=== PATIENT | male | born 1945 | race Caucasian/White ===

== ENCOUNTER → 2019-10-31 | Emergency (ER) | payer MEDICARE ==
[~2019-10-31] VITALS: Ht 185.4 cm; Wt 113.4 kg
[2019-10-31 19:35] VITALS: BP 148/82
== END | disposition home or self-care (01) ==
LOC: ER 16:50
DX: G51.0 Bell's palsy (principal); I10 Essential (primary) hypertension; E11.9 Type 2 diabetes mellitus without complications; E78.5 Hyperlipidemia, unspecified
CPT/HCPCS: 70450

== ENCOUNTER 2020-09-13 08:03 | Inpatient (IN) | payer MEDICARE ==
[~2020-09-13] VITALS: Ht 193 cm; Wt 114.8 kg
[2020-09-13] MEDS ORDERED: InsuLIN REG 1unit/0.01ml Soln (100units/ml) IV ONE (08:45)
[2020-09-13] MEDS ORDERED: SODIUM CHLORIDE 0.9% 1,000 ML IV ONE ×3 (08:45→17:45)
[2020-09-13] MEDS ORDERED: ONDANSETRON HCL 4 MG/2 ML VIAL IV ONE (08:45)
[2020-09-13] MEDS ORDERED: MORPHINE SULFATE 4 MG/ML SYR/VIAL IV ONE (08:45)
[2020-09-13 08:54] LABS: Basophils # (auto) 0 10 ^3/uL (0-0.2); Basophils % (auto) 0.1 % (0.0-2.0); Eosinophils # (auto) 0 10 ^3/uL (0-0.8); Hemoglobin 17.4 g/dL (13.5-17.5); Lymphocytes # (auto) 0.6 10 ^3/uL (0.4-5.4)
[2020-09-13 08:57] LABS: Lymphocytes % (auto) 6.9 % (10.0-50.0); Monocytes # (auto) 0.3 10 ^3/uL (0-1.3); Monocytes % (auto) 4.1 % (0.0-12.0); Neutrophils # (auto) 7.2 10 ^3/uL (1.6-8.6); Neutrophils % (auto) 88.9 % (37.0-80.0); Platelet Count (auto) 166 10^3/uL (140-450)
[2020-09-13 08:58] LABS: Alanine Aminotransferase 55 U/L (16-61); Albumin 3.8 g/dL (3.4-5.0); Anion Gap 9 (5-15); Aspartate Aminotransferase 23 U/L (15-37); BUN/Creatinine Ratio 18.9; Blood Urea Nitrogen 24 mg/dL (7-18); Calcium 10.5 mg/dL (8.5-10.1); Carbon Dioxide 25 mmol/L (21-32); Chloride 99 mmol/L (98-107); GFR African American 72 mL/min; GFR Non-African American 59 mL/min; Glucose 259 mg/dL (74-106); Lipase 55 U/L (73-393); Potassium 4.5 mmol/L (3.5-5.1); Sodium 133 mmol/L (136-145)
[2020-09-13 09:03] LABS: Alkaline Phosphatase 66 U/L (45-117); Bilirubin, Total 0.9 mg/dL (0.2-1.0); Total Protein 7.5 g/dL (6.4-8.2)
[2020-09-13 09:11] LABS: Hematocrit 49.3 % (41.0-53.0); Red Blood Cells 5.06 10^6/uL (4.5-5.90); White Blood Cell 8.2 10^3/uL (4.4-10.8)
[2020-09-13 09:12] LABS: Mean Corpuscular Hemoglobin 34.4 pg (28.0-32.0); Mean Corpuscular Hgb Conc. 35.3 g/dL (32.0-36.0); Mean Corpuscular Volume 97.5 fL (80.0-100.0); Red Cell Distribution Width 12.9 % (11.8-14.3)
[2020-09-13 09:24] LABS: INR 1.04 (0.9-1.15)
[2020-09-13] MEDS ORDERED: PIPERACILLIN-TAZOB 3.375GM 100 ML IV ONE (11:45)
[2020-09-13] MEDS ORDERED: DEXTROSE (50%) 50ML SYRG IV PRN (13:15)
[2020-09-13] MEDS ORDERED: NITROGLYCERIN 0.4 MG SL TAB SL PRN (13:15)
[2020-09-13] MEDS ORDERED: MORPHINE SULF INJ 2 MG/ML SYRINGE 1ML IV PRN (13:15)
[2020-09-13] MEDS ORDERED: ACETAMINOPHEN 650 MG RECT SUPP PR PRN (13:15)
[2020-09-13 14:33] LABS: Cholesterol 129 mg/dL (< 200)
[2020-09-13 14:36] LABS: HDL Cholesterol 59 mg/dL (40-59); LDL Cholesterol 60 mg/dL (< 100); Triglycerides 98 mg/dL (< 150)
[2020-09-13] MEDS ORDERED: GASTROGRAFIN 120 ML SOL ONE (15:00)
[2020-09-13] MEDS: ONDANSETRON HCL 4 MG/2 ML VIAL IV PRN ×2 (16:17→20:25)
[2020-09-13] MEDS: cefTRIAXone 1GM/50ML D5W 50 ML IV SCH (16:29)
[2020-09-13] MEDS: SODIUM CHLORIDE 0.9% 1,000 ML IV SCH ×2 (16:29→21:15)
[2020-09-13] MEDS: metroNIDAZOLE 500MG/100ML 100 ML IV SCH ×2 (17:06→22:00)
[2020-09-13] MEDS: ACCU-CHEK COMFORT CURVE STRIP VI SCH (18:00)
[2020-09-13] MEDS: InsuLIN REG 1unit/0.01ml Soln (100units/ml) SC SCH (18:00)
[2020-09-13] MEDS ORDERED: LIDOCAINE VISCOUS 2% 15ML UD PO ONE (20:00)
[2020-09-13] MEDS ORDERED: LIDOCAINE VISCOUS 2% 15ML UD ONE (20:07)
[2020-09-13] MEDS: MORPHINE SULF INJ 2 MG/ML SYRINGE 1ML IV PRN (20:10)
[2020-09-13 23:36] VITALS: BP_SYST 120; BP_DIAS 68; BP_DIAS 69
[2020-09-14] MEDS: InsuLIN REG 1unit/0.01ml Soln (100units/ml) SC SCH ×4 (00:18→20:29)
[2020-09-14] MEDS: ACCU-CHEK COMFORT CURVE STRIP VI SCH ×6 (00:28→22:00)
[2020-09-14] MEDS: MORPHINE SULF INJ 2 MG/ML SYRINGE 1ML IV PRN (00:31)
[2020-09-14 04:00] VITALS: BP 145/82
[2020-09-14] MEDS: SODIUM CHLORIDE 0.9% 1,000 ML IV SCH ×2 (05:56→13:15)
[2020-09-14] MEDS: metroNIDAZOLE 500MG/100ML 100 ML IV SCH ×3 (05:56→20:30)
[2020-09-14 07:00] LABS: Basophils # (auto) 0 10 ^3/uL (0-0.2); Eosinophils # (auto) 0 10 ^3/uL (0-0.8); Lymphocytes # (auto) 0.7 10 ^3/uL (0.4-5.4); Neutrophils # (auto) 13.8 10 ^3/uL (1.6-8.6); Red Cell Distribution Width 13.2 % (11.8-14.3)
[2020-09-14 07:03] LABS: Basophils % (auto) 0.2 % (0.0-2.0); Hematocrit 44.8 % (41.0-53.0); Lymphocytes % (auto) 4.9 % (10.0-50.0); Mean Corpuscular Hemoglobin 35.2 pg (28.0-32.0); Mean Corpuscular Hgb Conc. 35.7 g/dL (32.0-36.0); Mean Corpuscular Volume 98.7 fL (80.0-100.0); Monocytes # (auto) 0.4 10 ^3/uL (0-1.3); Monocytes % (auto) 2.8 % (0.0-12.0); Neutrophils % (auto) 92.1 % (37.0-80.0); Platelet Count (auto) 162 10^3/uL (140-450); Red Blood Cells 4.54 10^6/uL (4.5-5.90); White Blood Cell 14.9 10^3/uL (4.4-10.8)
[2020-09-14 07:18] LABS: BUN/Creatinine Ratio 20.8; Magnesium 1.5 mg/dL (1.6-2.6); Potassium 4.8 mmol/L (3.5-5.1)
[2020-09-14 09:00] VITALS: BP 145/68
[2020-09-14] MEDS: cefTRIAXone 1GM/50ML D5W 50 ML IV SCH (09:30)
[2020-09-14] MEDS ORDERED: ESCI20TA PO (10:36)
[2020-09-14] MEDS ORDERED: HYDROmorphone HCL 2 MG/ML VL ONE (12:22)
[2020-09-14] MEDS ORDERED: ROCURONIUM 10MG/ML 10ML VIAL IV ONE (12:22)
[2020-09-14] MEDS ORDERED: PROPOFOL 10 MG/ML 20 ML IV ONE (12:30)
[2020-09-14] MEDS ORDERED: ceFAZolin 1GM/50ML 50 ML IV ONE (13:28)
[2020-09-14] MEDS ORDERED: metroNIDAZOLE 500MG/100ML 100 ML IV ONE (13:28)
[2020-09-14] MEDS ORDERED: BUPIVACAINE 0.25% INJ 50ML VIAL ONE (13:30)
[2020-09-14] MEDS ORDERED: POVIDONE IODINE 10 % TOPICAL OINT 30GM TOP ONE (13:30)
[2020-09-14] MEDS ORDERED: PHENYLEPHRINE HCL 10 MG/ML VL IV ONE (13:40)
[2020-09-14] MEDS ORDERED: ePHEDrine SULFATE 50 MG/ML AMP IV ONE (13:40)
[2020-09-14] MEDS ORDERED: METOCLOPRAMIDE HCL 5MG/ml INJ 2ml VIAL ONE (14:18)
[2020-09-14] MEDS ORDERED: ONDANSETRON HCL 4 MG/2 ML VIAL ONE (14:19)
[2020-09-14] MEDS ORDERED: NEOSTIGMINE 1 MG/ML INJ (10mg/10ML VIAL) ONE (14:42)
[2020-09-14] MEDS ORDERED: GLYCOPYRROLATE 0.2 MG/ML 1ML VIAL ONE (14:42)
[2020-09-14] MEDS ORDERED: ATO40T PO (15:42)
[2020-09-14] MEDS ORDERED: HYDROmorphone HCL 2 MG/ML VL IV PRN (15:45)
[2020-09-14] MEDS ORDERED: hydrALAZINE HCL 20 MG/ML VL IV PRN (15:45)
[2020-09-14] MEDS ORDERED: ONDANSETRON HCL 4 MG/2 ML VIAL IV PRN (15:45)
[2020-09-14] MEDS ORDERED: LABETALOL HCL 5 MG/ML 4ML SYRINGE IV PRN (15:45)
[2020-09-14] MEDS ORDERED: METOPROLOL TARTRATE 1MG/1ML-5ML VIAL IV ONE (16:00)
[2020-09-14] MEDS ORDERED: InsuLIN REG 1unit/0.01ml Soln (100units/ml) SC SCH ×2 (16:00)
[2020-09-14] MEDS ORDERED: ACCU-CHEK COMFORT CURVE STRIP VI SCH ×2 (16:00)
[2020-09-14] MEDS: D5W/SOD CHL 0.45%/KCL 40MEQ 1,000 ML IV SCH (16:57)
[2020-09-14 17:00] VITALS: BP 152/73
[2020-09-14] MEDS: FOLIC ACID INJ SCH (17:55)
[2020-09-14] MEDS: SODIUM CHLORIDE 0.9% INJ SCH (17:55)
[2020-09-14] MEDS: MAGNESIUM SULF INJ SCH (17:55)
[2020-09-15] MEDS: MORPHINE SULF INJ 2 MG/ML SYRINGE 1ML IV PRN (00:12)
[2020-09-15] MEDS: ONDANSETRON HCL 4 MG/2 ML VIAL IV PRN (00:12)
[2020-09-15] MEDS: ACCU-CHEK COMFORT CURVE STRIP VI SCH ×7 (00:14→23:42)
[2020-09-15] MEDS: D5W/SOD CHL 0.45%/KCL 40MEQ 1,000 ML IV SCH ×3 (00:14→16:00)
[2020-09-15] MEDS: InsuLIN REG 1unit/0.01ml Soln (100units/ml) SC SCH ×7 (00:15→23:46)
[2020-09-15 05:00] VITALS: BP 128/83
[2020-09-15] MEDS: metroNIDAZOLE 500MG/100ML 100 ML IV SCH ×3 (05:58→23:23)
[2020-09-15] MEDS: cefTRIAXone 1GM/50ML D5W 50 ML IV SCH (08:29)
[2020-09-15 09:15] VITALS: BP 116/71
[2020-09-15] MEDS ORDERED: DEXTROSE (50%) 50ML SYRG IV PRN (10:00)
[2020-09-15] MEDS: INSULIN LANTUS (GLARGINE) 1 /0.01ml (100units/ml) SC SCH ×2 (10:00→22:12)
[2020-09-15] MEDS: PANTOPRAZOLE 40 MG/10 ML VIAL INJ IV SCH (10:24)
[2020-09-15] MEDS: SODIUM CHLORIDE 0.9% INJ SCH (12:43)
[2020-09-15] MEDS: MAGNESIUM SULF INJ SCH (12:43)
[2020-09-15] MEDS: FOLIC ACID INJ SCH (12:43)
[2020-09-15 13:00] VITALS: BP 108/76
[2020-09-15 16:35] VITALS: BP 136/77
[2020-09-15 20:00] VITALS: BP 139/85
[2020-09-15 22:00] VITALS: BP 139/85
[2020-09-16] MEDS: D5W/SOD CHL 0.45%/KCL 40MEQ 1,000 ML IV SCH ×3 (02:04→17:41)
[2020-09-16] MEDS: ACCU-CHEK COMFORT CURVE STRIP VI SCH ×5 (04:03→20:17)
[2020-09-16] MEDS: InsuLIN REG 1unit/0.01ml Soln (100units/ml) SC SCH ×5 (04:05→20:19)
[2020-09-16 05:25] VITALS: BP 144/83
[2020-09-16] MEDS: metroNIDAZOLE 500MG/100ML 100 ML IV SCH ×3 (05:49→22:35)
[2020-09-16 09:00] VITALS: BP 118/76
[2020-09-16] MEDS: PANTOPRAZOLE 40 MG/10 ML VIAL INJ IV SCH (10:31)
[2020-09-16] MEDS: cefTRIAXone 1GM/50ML D5W 50 ML IV SCH (10:31)
[2020-09-16] MEDS: INSULIN LANTUS (GLARGINE) 1 /0.01ml (100units/ml) SC SCH ×2 (10:55→21:51)
[2020-09-16 12:00] VITALS: BP 125/79
[2020-09-16] MEDS: MAGNESIUM SULF INJ SCH (13:39)
[2020-09-16] MEDS: SODIUM CHLORIDE 0.9% INJ SCH (13:39)
[2020-09-16] MEDS: FOLIC ACID INJ SCH (13:39)
[2020-09-16 16:00] VITALS: BP 127/59
[2020-09-16] MEDS ORDERED: BENZOCAINE (DENTAL) 20 % SPRAY 60ML MT ONE ×2 (17:30)
[2020-09-16] MEDS: MORPHINE SULF INJ 2 MG/ML SYRINGE 1ML IV PRN (17:41)
[2020-09-16 22:00] VITALS: BP 139/89
[2020-09-17] MEDS: ACCU-CHEK COMFORT CURVE STRIP VI SCH ×6 (00:02→20:17)
[2020-09-17] MEDS: InsuLIN REG 1unit/0.01ml Soln (100units/ml) SC SCH ×6 (00:04→20:21)
[2020-09-17] MEDS: D5W/SOD CHL 0.45%/KCL 40MEQ 1,000 ML IV SCH ×3 (04:02→18:37)
[2020-09-17 05:00] VITALS: BP 142/89
[2020-09-17] MEDS: metroNIDAZOLE 500MG/100ML 100 ML IV SCH ×3 (06:34→22:33)
[2020-09-17 08:49] VITALS: BP 148/82
[2020-09-17] MEDS: cefTRIAXone 1GM/50ML D5W 50 ML IV SCH (09:09)
[2020-09-17] MEDS: INSULIN LANTUS (GLARGINE) 1 /0.01ml (100units/ml) SC SCH ×2 (09:10→22:34)
[2020-09-17] MEDS: PANTOPRAZOLE 40 MG/10 ML VIAL INJ IV SCH (09:10)
[2020-09-17 10:41] LABS: Basophils # (auto) 0 10 ^3/uL (0-0.2); Eosinophils # (auto) 0.1 10 ^3/uL (0-0.8); Hematocrit 42.1 % (41.0-53.0); Lymphocytes % (auto) 8.8 % (10.0-50.0)
[2020-09-17 10:43] LABS: Basophils % (auto) 0.2 % (0.0-2.0); Eosinophils % (auto) 0.8 % (0.0-7.0); Lymphocytes # (auto) 0.8 10 ^3/uL (0.4-5.4); Mean Corpuscular Hemoglobin 34.3 pg (28.0-32.0); Mean Corpuscular Hgb Conc. 33.3 g/dL (32.0-36.0); Mean Corpuscular Volume 102.9 fL (80.0-100.0); Monocytes # (auto) 0.6 10 ^3/uL (0-1.3); Monocytes % (auto) 7.1 % (0.0-12.0); Neutrophils # (auto) 7.4 10 ^3/uL (1.6-8.6); Neutrophils % (auto) 83.1 % (37.0-80.0); Nucleated Red Blood Cells % 0.1 %; Platelet Count (auto) 160 10^3/uL (140-450); Red Blood Cells 4.09 10^6/uL (4.5-5.90); Red Cell Distribution Width 13.3 % (11.8-14.3); White Blood Cell 8.9 10^3/uL (4.4-10.8)
[2020-09-17 11:11] LABS: Potassium 4.2 mmol/L (3.5-5.1)
[2020-09-17 11:16] LABS: BUN/Creatinine Ratio 30.4; Calcium 9.7 mg/dL (8.5-10.1)
[2020-09-17 17:00] VITALS: BP 128/73
[2020-09-17] MEDS: FOLIC ACID INJ SCH (18:34)
[2020-09-17] MEDS: MAGNESIUM SULF INJ SCH (18:34)
[2020-09-17] MEDS: SODIUM CHLORIDE 0.9% INJ SCH (18:34)
[2020-09-17 22:00] VITALS: BP 133/80
[2020-09-18] MEDS: ACCU-CHEK COMFORT CURVE STRIP VI SCH ×6 (00:21→20:00)
[2020-09-18] MEDS: InsuLIN REG 1unit/0.01ml Soln (100units/ml) SC SCH ×6 (00:26→20:00)
[2020-09-18] MEDS: D5W/SOD CHL 0.45%/KCL 40MEQ 1,000 ML IV SCH (02:42)
[2020-09-18 05:00] VITALS: BP 148/94
[2020-09-18 06:01] LABS: Basophils # (auto) 0 10 ^3/uL (0-0.2); Basophils % (auto) 0.1 % (0.0-2.0); Eosinophils # (auto) 0.2 10 ^3/uL (0-0.8); Eosinophils % (auto) 1.8 % (0.0-7.0); Hematocrit 44.1 % (41.0-53.0); Hemoglobin 15.2 g/dL (13.5-17.5); Lymphocytes # (auto) 1.2 10 ^3/uL (0.4-5.4); Lymphocytes % (auto) 13.6 % (10.0-50.0); Mean Corpuscular Hemoglobin 34.8 pg (28.0-32.0); Mean Corpuscular Hgb Conc. 34.5 g/dL (32.0-36.0); Mean Corpuscular Volume 100.7 fL (80.0-100.0); Monocytes # (auto) 0.7 10 ^3/uL (0-1.3); Neutrophils # (auto) 6.7 10 ^3/uL (1.6-8.6); Neutrophils % (auto) 76.5 % (37.0-80.0); Platelet Count (auto) 171 10^3/uL (140-450); Red Blood Cells 4.38 10^6/uL (4.5-5.90); White Blood Cell 8.8 10^3/uL (4.4-10.8)
[2020-09-18] MEDS: metroNIDAZOLE 500MG/100ML 100 ML IV SCH ×3 (06:15→21:27)
[2020-09-18 06:20] LABS: Albumin 2.7 g/dL (3.4-5.0); Calcium 9.9 mg/dL (8.5-10.1); Potassium 3.8 mmol/L (3.5-5.1)
[2020-09-18 06:24] LABS: BUN/Creatinine Ratio 32.6; Bilirubin, Total 0.6 mg/dL (0.2-1.0)
[2020-09-18 09:00] VITALS: BP 140/56
[2020-09-18] MEDS: PANTOPRAZOLE 40 MG/10 ML VIAL INJ IV SCH (09:42)
[2020-09-18] MEDS: cefTRIAXone 1GM/50ML D5W 50 ML IV SCH (09:42)
[2020-09-18] MEDS: INSULIN LANTUS (GLARGINE) 1 /0.01ml (100units/ml) SC SCH ×2 (10:18→21:27)
[2020-09-18] MEDS: SODIUM CHLORIDE 0.9% 1,000 ML IV SCH ×2 (10:18→17:15)
[2020-09-18 13:00] VITALS: BP 134/76
[2020-09-18] MEDS: SODIUM CHLORIDE 0.9% INJ SCH (13:15)
[2020-09-18] MEDS: FOLIC ACID INJ SCH (13:15)
[2020-09-18] MEDS: MAGNESIUM SULF INJ SCH (13:15)
[2020-09-18] MEDS: METOCLOPRAMIDE HCL 5MG/ml INJ 2ml VIAL IV SCH ×2 (14:10→21:27)
[2020-09-18 17:00] VITALS: BP 139/81
[2020-09-18 22:00] VITALS: BP 132/77
[2020-09-19] MEDS: ACCU-CHEK COMFORT CURVE STRIP VI SCH ×6 (00:26→20:00)
[2020-09-19] MEDS: InsuLIN REG 1unit/0.01ml Soln (100units/ml) SC SCH ×6 (00:27→20:00)
[2020-09-19] MEDS: SODIUM CHLORIDE 0.9% 1,000 ML IV SCH ×3 (01:38→16:06)
[2020-09-19 05:00] VITALS: BP 142/90
[2020-09-19] MEDS: metroNIDAZOLE 500MG/100ML 100 ML IV SCH ×3 (05:34→21:28)
[2020-09-19] MEDS: METOCLOPRAMIDE HCL 5MG/ml INJ 2ml VIAL IV SCH ×3 (05:35→21:28)
[2020-09-19] MEDS ORDERED: GASTROGRAFIN 120 ML SOL ONE (08:12)
[2020-09-19 10:05] VITALS: BP 133/87
[2020-09-19] MEDS: INSULIN LANTUS (GLARGINE) 1 /0.01ml (100units/ml) SC SCH ×2 (10:30→21:28)
[2020-09-19] MEDS: cefTRIAXone 1GM/50ML D5W 50 ML IV SCH (10:34)
[2020-09-19] MEDS: PANTOPRAZOLE 40 MG/10 ML VIAL INJ IV SCH (10:35)
[2020-09-19] MEDS: FOLIC ACID 1 MG, MAGNESIUM SULF SDV 50% 8 MEQ, THIAMINE INJ 100 MG in SODIUM CHLORIDE 0... INJ SCH (13:00)
[2020-09-19 13:27] VITALS: BP 130/76
[2020-09-19 17:20] VITALS: BP 122/75
[2020-09-19 21:14] VITALS: BP 119/65
[2020-09-20] MEDS: ACCU-CHEK COMFORT CURVE STRIP VI SCH ×4 (00:11→12:05)
[2020-09-20] MEDS: InsuLIN REG 1unit/0.01ml Soln (100units/ml) SC SCH ×4 (00:11→12:06)
[2020-09-20] MEDS: SODIUM CHLORIDE 0.9% 1,000 ML IV SCH ×2 (01:06→09:15)
[2020-09-20 04:37] VITALS: BP 132/78
[2020-09-20] MEDS: metroNIDAZOLE 500MG/100ML 100 ML IV SCH (05:31)
[2020-09-20] MEDS: METOCLOPRAMIDE HCL 5MG/ml INJ 2ml VIAL IV SCH (06:06)
[2020-09-20 08:00] VITALS: BP 124/78
[2020-09-20 09:00] VITALS: BP 124/78
[2020-09-20] MEDS: cefTRIAXone 1GM/50ML D5W 50 ML IV SCH (09:17)
[2020-09-20] MEDS: PANTOPRAZOLE 40 MG/10 ML VIAL INJ IV SCH (09:18)
[2020-09-20] MEDS: INSULIN LANTUS (GLARGINE) 1 /0.01ml (100units/ml) SC SCH (10:21)
[2020-09-20] MEDS: FOLIC ACID 1 MG, MAGNESIUM SULF SDV 50% 8 MEQ, THIAMINE INJ 100 MG in SODIUM CHLORIDE 0... INJ SCH (12:00)
[2020-09-20 12:18] VITALS: BP 124/78
[2020-09-20 13:00] VITALS: BP 126/83
== END 2020-09-20 14:35 | disposition home or self-care (01) | DRG 335 ==
LOC: ER 08:03 → TELE 08:04 → TELE-CENTR 22:53 → TELE-EAST 09-16 16:48
PROVIDERS: ADMIT Nurse Practitioner Acute Care; ATTEND Family Medicine
PROC: 0D9670Z Drainage of Stomach with Drainage Device, Via Natural or Artificial Opening (ICD-10-PCS; 2020-09-13)
PROC: 0DNB0ZZ Release Ileum, Open Approach (ICD-10-PCS; principal; 2020-09-14 13:40)
DX: K56.51 Intestinal adhesions [bands], with partial obstruction (principal); K65.9 Peritonitis, unspecified; N17.9 Acute kidney failure, unspecified; K57.92 Diverticulitis of intestine, part unspecified, without perforation or abscess without bleeding; E11.65 Type 2 diabetes mellitus with hyperglycemia; E78.5 Hyperlipidemia, unspecified; I10 Essential (primary) hypertension; E66.01 Morbid (severe) obesity due to excess calories; E78.00 Pure hypercholesterolemia, unspecified; F32.9 Major depressive disorder, single episode, unspecified; Z20.822 Contact with and (suspected) exposure to COVID-19; Z98.84 Bariatric surgery status; E11.69 Type 2 diabetes mellitus with other specified complication; K31.9 Disease of stomach and duodenum, unspecified; Z68.30 Body mass index [BMI] 30.0-30.9, adult
CPT/HCPCS: 36415; 71045; 74018; 74176; 74250; 80048; 80053; 80061; 82010; 82962; 83036; 83690; 83735; 84484; 85025; 85610; 85730; 86850; 86900; 86901; 87070; 87075; 87077; 87186; 87205; 87426; 93005; 96365; 96366; 96372; 96375; 96376; 97116; 97163; 97530; C9113; G0378; J0690; J0696; J1815; J2405; J2543; J2704; J3490